=== PATIENT | male | born 1950 | race Hispanic/Latino ===

== ENCOUNTER 2017-12-03 18:43 | Emergency (ER) | payer MEDICARE ==
[2017-12-03] MEDS ORDERED: NACL 0.9% 1000 ML 1,000 ML IV ONE ×2 (20:53→20:55)
[2017-12-03] MEDS ORDERED: NACL 0.9% 1000 ML 2,000 ML ONE (20:53)
[2017-12-03] MEDS ORDERED: ZOFRAN IV ONE (20:54)
--- NOTE | 2017-12-03 20:59 | Emergency Department Report ---
ED General Adult HPI - General Chief complaint: Abdominal Pain Stated complaint: ABD CRAMPING/ N/V Time Seen by Provider: 12/03/17 20:49 Source: patient Mode of arrival: Stretcher Limitations: No Limitations - History of Present Illness Initial comments: Patient is a 66-year-old male with history of brain injury, diabetes. Patient stated that he was working outside the whole day today and all of a sudden he started having some shaking but denied any sweating. He stated that he was constipated for a few days and he took apple cider and his*having shaking in his extremities and abdominal cramps. Patient denied any chest pain denied any abdominal pain at this moment. No fever. -: Sudden Severity scale (0 -10): 0 - Related Data Allergies Allergy/AdvReac Type Severity Reaction Status Date / Time fexofenadine [From Denice] Allergy Itching Verified 12/03/17 21:37 ED Review of Systems ROS: Stated complaint: ABD CRAMPING/ N/V Other details as noted in HPI Comment: All other systems reviewed and negative Constitutional: denies: chills, fever Respiratory: denies: cough, orthopnea, shortness of breath, SOB with exertion, SOB at rest, wheezing Cardiovascular: denies: chest pain, palpitations, dyspnea on exertion Gastrointestinal: nausea, constipation. denies: abdominal pain, vomiting, diarrhea, hematemesis, melena Neurological: denies: headache, weakness, numbness, paresthesias, confusion ED Past Medical Hx - Past Medical History Hx Hypertension: Yes Hx Diabetes: Yes Hx Psychiatric Treatment: (PTSD) Additional medical history: Neuropathy, traumatic brain injury, Enlarged prostate - Surgical History Past Surgical History?: Yes - Social History Smoking Status: Never Smoker Substance Use Type: None ED Physical Exam - General Limitations: No Limitations General appearance: alert, in no apparent distress - Head Head exam: Present: atraumatic, normocephalic - Eye Eye exam: Present: normal appearance, PERRL - ENT ENT exam: Present: mucous membranes dry - Neck Neck exam: Present: normal inspection, full ROM. Absent: tenderness, meningismus, lymphadenopathy - Respiratory Respiratory exam: Present: normal lung sounds bilaterally. Absent: respiratory distress, wheezes, rales, rhonchi, stridor, chest wall tenderness, accessory muscle use, decreased breath sounds, prolonged expiratory - Cardiovascular Cardiovascular Exam: Present: regular rate, normal rhythm, normal heart sounds - GI/Abdominal GI/Abdominal exam: Present: soft, normal bowel sounds. Absent: distended, tenderness, guarding, rebound, rigid, organomegaly, mass, bruit, pulsatile mass , hernia - Extremities Exam Extremities exam: Present: normal inspection - Back Exam Back exam: Present: normal inspection. Absent: full ROM, tenderness, CVA tenderness (R), CVA tenderness (L), muscle spasm, paraspinal tenderness, vertebral tenderness, rash noted - Neurological Exam Neurological exam: Present: alert, oriented X3, CN II-XII intact, normal gait - Skin Skin exam: Present: warm, intact, normal color. Absent: cyanosis ED Course Vital Signs 12/03/17 12/03/17 12/03/17 19:20 19:34 19:46 Temperature 98.6 F Pulse Rate 83 84 85 Respiratory 18 11 L 20 Rate Blood Pressure 135/61 Blood Pressure 135/61 [Right] O2 Sat by Pulse 95 Oximetry 12/03/17 12/03/17 12/03/17 20:00 20:16 20:30 Temperature Pulse Rate 86 81 81 Respiratory 21 20 20 Rate Blood Pressure 133/74 133/74 125/68 Blood Pressure [Right] O2 Sat by Pulse Oximetry 12/03/17 12/03/17 12/03/17 20:53 21:00 21:16 Temperature Pulse Rate 85 83 82 Respiratory 21 16 Rate Blood Pressure 125/68 139/70 139/70 Blood Pressure [Right] O2 Sat by Pulse 93 Oximetry 12/03/17 12/03/17 12/03/17 21:30 21:46 23:16 Temperature Pulse Rate 80 79 81 Respiratory 22 25 H 24 Rate Blood Pressure 121/62 121/62 119/64 Blood Pressure [Right] O2 Sat by Pulse 90 90 91 Oximetry 12/03/17 12/03/17 12/04/17 23:30 23:46 00:00 Temperature Pulse Rate 74 74 76 Respiratory 21 19 13 Rate Blood Pressure 119/64 119/64 128/62 Blood Pressure [Right] O2 Sat by Pulse 90 93 89 Oximetry 12/04/17 12/04/17 12/04/17 00:16 00:30 00:45 Temperature Pulse Rate 71 68 66 Respiratory 19 18 19 Rate Blood Pressure 128/62 128/62 Blood Pressure [Right] O2 Sat by Pulse 93 85 96 Oximetry 12/04/17 01:00 Temperature 98.6 F Pulse Rate Respiratory Rate Blood Pressure Blood Pressure [Right] O2 Sat by Pulse Oximetry ED Medical Decision Making - Lab Data Result diagrams: 12/03/17 21:11 12/03/17 21:11 - Radiology Data Radiology results: report reviewed Referring Physician: FABY GLASGOW Patient Name: LEMUEL GUEVARA Date of : 1950 Sex: Male Report Date: 2017-12-03 Report Status: Finalized Findings [facility] [address] [place] [address] Cat Scan Report Signed Patient: LEMUEL GUEVARA MR#: [id number] : 1950 Acct:[id number] Age/Sex: 66 / M ADM Date: 12/03/17 Loc: ED Attending Dr: Ordering Physician: FABY GLASGOW Date of Service: 12/03/17 Procedure(s): CT abdomen pelvis w con Accession Number(s): [id number] cc: FABY GLASGOW FINAL REPORT PROCEDURE: CT ABDOMEN PELVIS W CON TECHNIQUE: Computerized axial tomography of the abdomen and pelvis was performed after the IV injection of iodinated nonionic contrast. HISTORY: abdominal pain COMPARISON: No prior studies are available for comparison. FINDINGS: Visualized lower thorax: No significant abnormality. Liver: Diffuse low attenuation of the liver is compatible with fatty infiltration. There is a circumscribed low-density lesion at the hepatic dome, measuring 13 millimeters, compatible with a cyst. Liver measures 20 centimeters craniocaudal. Spleen: Calcified granulomas are present. Gallbladder and biliary system: There has been cholecystectomy. Pancreas: Normal. Adrenals: Normal. Kidneys: There is a 4 centimeter left renal parapelvic cyst present. Bilateral nonobstructing renal calculi are present. Largest in the right kidney measures up to 4 millimeters. Largest in the left kidney measures up to 10 millimeters. GI tract: Sigmoid diverticulosis. Appendix is visualized and does not appear inflamed. No bowel obstruction or acute inflammation is seen. Lymph nodes and mesentery: Normal. Vasculature: Mild atherosclerotic calcification of the aorta and bilateral common iliac arteries. Bladder: The urinary bladder is not well distended, however there does appear to be circumferential wall thickening. Reproductive organs: Lobular prostate gland, which indents the base of the bladder. Peritoneum: No free fluid. Musculoskeletal structures: Multilevel degenerative disc changes of the lumbar spine. Facet arthritic changes are seen in the lower lumbar spine. Other: None. IMPRESSION: Bilateral nonobstructive renal calculi. No acute inflammatory process. Diverticulosis, with no evidence of acute diverticulitis Lobular prostate gland, which indents the base of the urinary bladder. There may be circumferential urinary bladder wall thickening, not fully evaluated due to lack of distention. Transcribed By: SCAR Dictated By: EKTA HIRSCH M.D. Electronically Authenticated By: EKTA HIRSCH M.D. Signed Date/Time: 12/03/172246 DD/ 46 TD/TT: 12/03/172246 - Medical Decision Making Patient stated that he is feeling much better. His urine is clear. Denied any abdominal pain nausea or vomiting. Critical care attestation.: If time is entered above; I have spent that time in minutes in the direct care of this critically ill patient, excluding procedure time. ED Disposition Clinical Impression: Dehydration, Abdominal pain, Kidney stone Disposition: DC-01 TO HOME OR SELFCARE Is pt being admited?: No Condition: Stable Instructions: Kidney Stones (ED), Abdominal Pain (ED) Referrals: PRIMARY CARE,MD [Primary Care Provider] - 3-5 Days
[2017-12-03 21:35] LABS: Bacteria,Urine 1+ /HPF (Negative); Bilirubin,Urine SM (Negative); Blood,Urine MOD (Negative); Color,Urine Amber (Yellow); Hyaline Casts,Urine 11 /LPF; Mucus,Urine 2+ /HPF
[2017-12-03 21:38] LABS: Hematocrit 38.3 % (35.5-45.6); Hemoglobin 12.9 gm/dl (11.8-15.2); Mean Corpuscular HGB Conc 34 % (32-34); Mean Corpuscular Hemoglobin 27 pg (28-32); Mean Corpuscular Volume 81 fl (84-94); Platelet Count 163 K/mm3 (140-440); Red Blood Count 4.76 M/mm3 (3.65-5.03); Red Cell Distribution Width 14.4 % (13.2-15.2)
[2017-12-03 21:45] LABS: Alanine Aminotransferase 27 units/L (7-56); Albumin 4.2 g/dL (3.9-5); BUN/Creatinine Ratio 24; Blood Urea Nitrogen 33 mg/dL (9-20); Calcium 8.7 mg/dL (8.4-10.2); Hemolysis Index 2; Lipase 20 units/L (13-60)
[2017-12-03 21:48] LABS: Bilirubin,Direct < 0.2 mg/dL (0-0.2)
[2017-12-03 22:03] LABS: Ictotest,Urine Negative (Negative)
--- NOTE | 2017-12-03 22:53 | Cat Scan Report ---
FINAL REPORT PROCEDURE: CT ABDOMEN PELVIS W CON TECHNIQUE: Computerized axial tomography of the abdomen and pelvis was performed after the IV injection of iodinated nonionic contrast. HISTORY: abdominal pain COMPARISON: No prior studies are available for comparison. FINDINGS: Visualized lower thorax: No significant abnormality. Liver: Diffuse low attenuation of the liver is compatible with fatty infiltration. There is a circumscribed low-density lesion at the hepatic dome, measuring 13 millimeters, compatible with a cyst. Liver measures 20 centimeters craniocaudal. Spleen: Calcified granulomas are present. Gallbladder and biliary system: There has been cholecystectomy. Pancreas: Normal. Adrenals: Normal. Kidneys: There is a 4 centimeter left renal parapelvic cyst present. Bilateral nonobstructing renal calculi are present. Largest in the right kidney measures up to 4 millimeters. Largest in the left kidney measures up to 10 millimeters. GI tract: Sigmoid diverticulosis. Appendix is visualized and does not appear inflamed. No bowel obstruction or acute inflammation is seen. Lymph nodes and mesentery: Normal. Vasculature: Mild atherosclerotic calcification of the aorta and bilateral common iliac arteries. Bladder: The urinary bladder is not well distended, however there does appear to be circumferential wall thickening. Reproductive organs: Lobular prostate gland, which indents the base of the bladder. Peritoneum: No free fluid. Musculoskeletal structures: Multilevel degenerative disc changes of the lumbar spine. Facet arthritic changes are seen in the lower lumbar spine. Other: None. IMPRESSION: Bilateral nonobstructive renal calculi. No acute inflammatory process. Diverticulosis, with no evidence of acute diverticulitis Lobular prostate gland, which indents the base of the urinary bladder. There may be circumferential urinary bladder wall thickening, not fully evaluated due to lack of distention.
[2017-12-04] MEDS ORDERED: ZOSYN/NS 3.375GM/50ML 3.375 GM/50 ML BAG IV SCH
[2017-12-04 00:20] LABS: Band Neutrophils # (Manual) 1.7 K/mm3; Basophils % (Manual) 0 % (0.0-1.8); Eosinophils % (Manual) 0 % (0.0-4.3); Platelet Estimate Consistent w Auto; RBC Morphology Normal; Total Cells Counted 100
[2017-12-04 01:00] VITALS: BP 128/62
== END 2017-12-04 01:01 | disposition home or self-care (01) ==
LOC: ED 18:43
DX: N20.0 Calculus of kidney (principal); E86.0 Dehydration; R10.9 Unspecified abdominal pain; I10 Essential (primary) hypertension; E11.9 Type 2 diabetes mellitus without complications
CPT/HCPCS: 36415; 74177; 80048; 80074; 81001; 82550; 83690; 85007; 85025; 85610; 87040; 93005; 93010; 96361; 96365; 96375; 99285; J2405; J2543; J7030; Q9967

== ENCOUNTER 2018-05-11 01:37 | Emergency (ER) | payer MEDICARE, OTHER ==
[2018-05-11] MEDS ORDERED: ASPIRIN PO ONE (02:50)
[2018-05-11 03:09] LABS: Basophils # (Auto) 0.1 K/mm3 (0.0-0.1); Basophils % (Auto) 0.6 % (0.0-1.8); Eosinophils # (Auto) 0.2 K/mm3 (0.0-0.4); Eosinophils % (Auto) 2.2 % (0.0-4.3); Hematocrit 42.1 % (35.5-45.6); Mean Corpuscular HGB Conc 33 % (32-34); Mean Corpuscular Hemoglobin 27 pg (28-32); Mean Corpuscular Volume 80 fl (84-94); Monocytes # (Auto) 0.9 K/mm3 (0.0-0.8); Platelet Count 184 K/mm3 (140-440); Red Blood Count 5.25 M/mm3 (3.65-5.03); Red Cell Distribution Width 15.7 % (13.2-15.2)
[2018-05-11 03:30] LABS: BUN/Creatinine Ratio 23; Blood Urea Nitrogen 25 mg/dL (9-20); Calcium 9.4 mg/dL (8.4-10.2); Hemolysis Index 8
[2018-05-11 09:38] VITALS: BP 150/76
--- NOTE | 2018-05-11 09:59 | XRay Report ---
PORTABLE CHEST: Chest pain. An AP portable view of the chest demonstrates a normal cardiac contour considering the limits of this technique. The lungs are clear with no evidence of infiltrate, fluid or failure. IMPRESSION: Normal portable chest.
--- NOTE | 2018-05-11 10:25 | Emergency Department Report ---
ED General Adult HPI - General Chief complaint: Chest Pain Stated complaint: CHEST PAIN, HIGH B/P Time Seen by Provider: 05/11/18 09:19 Source: patient Mode of arrival: Ambulatory Limitations: No Limitations - History of Present Illness Initial comments: She presents to the emergency department with a chief complaint heart palpitations. Patient has a history of SVT as currently on Cardizem for it which he states he takes daily. Patient states that when he gets up to go to the bathroom or do any other activity he notices that his heart rate increases to 170. Patient has some type of heart monitor which contacts with any Abnormal Heart Rate He Was Told to Come to the Hospital for Evaluation. Patient denies chest pain, shortness breath, headache. -: Sudden Radiation: non-radiation Severity scale (0 -10): 0 Improves with: none Worsens with: none Associated Symptoms: denies other symptoms Treatments Prior to Arrival: none - Related Data Home Medications Medication Instructions Recorded Confirmed Last Taken Aspirin 81 mg PO DAILY 05/11/18 05/11/18 Unknown Metformin HCl ER 500 mg PO BID 05/11/18 05/11/18 Unknown Rosuvastatin (Nf) 10 mg PO 05/11/18 Unknown busPIRone 10 mg PO DAILY 05/11/18 05/11/18 Unknown Allergies Allergy/AdvReac Type Severity Reaction Status Date / Time fexofenadine [From Denice] Allergy Itching Verified 12/03/17 21:37 ED Review of Systems ROS: Stated complaint: CHEST PAIN, HIGH B/P Other details as noted in HPI Comment: All other systems reviewed and negative Constitutional: denies: chills, fever Eyes: denies: eye pain, eye discharge, vision change ENT: denies: ear pain, throat pain Respiratory: denies: cough, shortness of breath, wheezing Cardiovascular: denies: chest pain, palpitations Endocrine: no symptoms reported Gastrointestinal: denies: abdominal pain, nausea, diarrhea Genitourinary: denies: urgency, dysuria Musculoskeletal: denies: back pain, joint swelling, arthralgia Skin: denies: rash, lesions Neurological: denies: headache, weakness, paresthesias Psychiatric: denies: anxiety, depression Hematological/Lymphatic: denies: easy bleeding, easy bruising ED Past Medical Hx - Past Medical History Hx Hypertension: Yes Hx Diabetes: Yes Hx Arthritis: Yes Hx Psychiatric Treatment: (PTSD) Additional medical history: Neuropathy, traumatic brain injury, Enlarged prostate - Surgical History Hx Cholecystectomy: Yes Additional Surgical History: Hernia, Carpal tunnel bilateral hands, - Social History Smoking Status: Former Smoker Substance Use Type: None - Medications Home Medications: Home Medications Medication Instructions Recorded Confirmed Last Taken Type Aspirin 81 mg PO DAILY 05/11/18 05/11/18 Unknown History Metformin HCl ER 500 mg PO BID 05/11/18 05/11/18 Unknown History Rosuvastatin (Nf) 10 mg PO 05/11/18 Unknown History busPIRone 10 mg PO DAILY 05/11/18 05/11/18 Unknown History ED Physical Exam - General Limitations: No Limitations General appearance: alert, in no apparent distress - Head Head exam: Present: atraumatic, normocephalic - Eye Eye exam: Present: normal appearance, PERRL, EOMI - ENT ENT exam: Present: mucous membranes moist - Neck Neck exam: Present: normal inspection - Respiratory Respiratory exam: Present: normal lung sounds bilaterally. Absent: respiratory distress, wheezes, rales, rhonchi - Cardiovascular Cardiovascular Exam: Present: regular rate, normal rhythm. Absent: systolic murmur, diastolic murmur, rubs, gallop - GI/Abdominal GI/Abdominal exam: Present: soft, normal bowel sounds. Absent: distended, tenderness - Rectal Rectal exam: Present: deferred - Extremities Exam Extremities exam: Present: normal inspection - Back Exam Back exam: Present: normal inspection - Neurological Exam Neurological exam: Present: alert, oriented X3, CN II-XII intact. Absent: motor sensory deficit - Psychiatric Psychiatric exam: Present: normal affect, normal mood - Skin Skin exam: Present: warm, dry, intact, normal color. Absent: rash ED Course Vital Signs 05/11/18 05/11/18 05/11/18 02:42 09:20 09:37 Temperature 97.9 F 97.7 F Pulse Rate 88 66 Respiratory 20 17 18 Rate Blood Pressure 140/88 Blood Pressure 150/76 [Left] O2 Sat by Pulse 98 95 Oximetry ED Medical Decision Making - Lab Data Result diagrams: 05/11/18 02:58 05/11/18 02:58 - EKG Data EKG shows normal: sinus rhythm Rate: normal - EKG Data When compared to previous EKG there are: no significant change 05/11/18 10:25 Child is with a rate of 86 At this T-wave abnormalities Normal axis normal intervals. No ST elevation - Medical Decision Making Discussed results with patient Patient was given an extra dose of Cardizem and he [facility] to him coming to the ED Critical care attestation.: If time is entered above; I have spent that time in minutes in the direct care of this critically ill patient, excluding procedure time. ED Disposition Clinical Impression: Arrhythmia Disposition: DC-01 TO HOME OR SELFCARE Is pt being admited?: No Does the pt Need Aspirin: No Condition: Stable Instructions: Palpitations (ED) Additional Instructions: Return if worse Referrals: PRIMARY CARE, [Primary Care Provider] - 3-5 Days [facility] [Outside] - 3-5 Days Time of Disposition: 10:29
[2018-05-11] MEDS ORDERED: CARDIZEM CD PO ONE (11:00)
== END 2018-05-11 10:46 | disposition home or self-care (01) ==
LOC: ED 01:37
DX: I49.9 Cardiac arrhythmia, unspecified (principal); I10 Essential (primary) hypertension; M19.90 Unspecified osteoarthritis, unspecified site; E11.40 Type 2 diabetes mellitus with diabetic neuropathy, unspecified; Z90.49 Acquired absence of other specified parts of digestive tract; Z79.82 Long term (current) use of aspirin
CPT/HCPCS: 36415; 71045; 80048; 84484; 85025; 93005; 93010; 99284